=== PATIENT | female | born 1950 | race Caucasian/White ===

== ENCOUNTER 2017-01-08 15:15 | Emergency (ER) | payer OTHER ==
[~2017-01-08] VITALS: Ht 147.3 cm; Wt 48.5 kg
[~2017-01-08 15:15] MED LIST: ASPIRIN325 MG PO; COMBIVENT INH14.7 G1 IH; LEVOTHROID75 MCG PO; MULTIVITAMIN W1 EAC2 PO; NAPROXEN500 MG PO; NORCO 5/3251 TA1 PO; OXYGEN; REQUIP XL4 MG PO; SEREVENT D50 MCG/DIS IH; SEROQUEL300 MG PO; SIMVASTATIN40 MG PO; TYLENOL500 MG PO; XARELTO10 MG PO
[2017-01-08 16:19] LABS: EOS % 0.9 % (0-7); EOSINOPHIL ABSOLUTE COUNT 0.1 tho/cmm (0.0-0.7); HCT-HEMATOCRIT 39.2 % (34.0-49.0); HGB-HEMOGLOBIN 13.3 gm/dl (12.0-15.5); IMMATURE GRANULOCYTES ABSOLUTE 0.01 tho/cmm (0-0.03); IMMATURE GRANULOCYTES PERCENT 0.2 % (0-0.3); LYMPH ABSOLUTE COUNT 1.9 tho/cmm (0.8-4.5); MCH (MEAN CORPUSCULAR HGB) 32.7 pg (28.0-32.0); MCHC MEAN CORPUSCULAR HGB CONC 33.9 % (32.0-36.0); MCV (MEAN CELL VOLUME) 96.3 fl (82.0-96.0); MEAN PLATELET VOLUME 10.2 cmc (9.4-12.4); MONO % 6.5 % (0-12); MONOCYTE ABSOLUTE COUNT 0.4 tho/cmm (0.0-1.2); NEUTROPHIL ABSOLUTE COUNT 4.1 tho/cmm (1.6-8.0); NEUTROPHIL-AUTOMATED 4.1 tho/cmm (1.6-8.0); NEUTROPHILS % 63.4 % (40-80); PLATELET COUNT 152 tho/cmm (150-450); PROTHROMBIN TIME 11.3 SECONDS (9.0-13.6); RED BLOOD COUNT 4.07 mil/cmm (4.00-5.20); RED CELL DISTRIBUTION WIDTH 13.6 % (12.4-16.4); WHITE BLOOD COUNT 6.4 tho/cmm (4.0-10.0)
[2017-01-08 16:25] LABS: ANION GAP 9 mmol/L (0-20); BLOOD UREA NITROGEN 9 mg/dl (6-24); CALCIUM 8.9 mg/dl (8.5-10.5); CARBON DIOXIDE-VENOUS 28 mmol/L (22-32); CHLORIDE 108 mmol/l (96-110); CREATININE 0.94 mg/dl (0.50-1.10); GLUCOSE 101 mg/dL (70-110); POTASSIUM 3.7 mmol/L (3.7-5.1); SODIUM 141 mmol/L (135-145); eGFR VALUE FOR BLACK 74 mL/Min
[2017-01-08] MEDS ORDERED: ANALPRAM HC 2.530 GM PR (16:43)
== END 2017-01-08 17:09 ==
LOC: EDMED 15:15
PROVIDERS: Emergency Medicine
DX: K62.5 Hemorrhage of anus and rectum (principal); K64.8 Other hemorrhoids; F17.210 Nicotine dependence, cigarettes, uncomplicated; Z90.49 Acquired absence of other specified parts of digestive tract
CPT/HCPCS: J7030